=== PATIENT | female | born 1985 | race Caucasian/White ===

== ENCOUNTER 2017-06-22 06:31 | Emergency (ER) | payer OTHER ==
[2017-06-22] MEDS ORDERED: Sodium Chloride 0.9% 10 ML Syringe FLUSH PRN (06:53)
--- NOTE | 2017-06-22 07:13 | EDM.PDOC ---
ED HPI GENERAL MEDICAL PROBLEM - General Chief Complaint: Neurological Problem Stated Complaint: [facility] Time Seen by Provider: 06/22/17 07:09 Source of Information: Reports: Patient, Family (spouse) History Limitations: Reports: No Limitations - History of Present Illness INITIAL COMMENTS - FREE TEXT/NARRATIVE: 32-year-old female presents to the ED after experiencing a grand mal convulsion this morning at about 0520 hrs.she had her arm wrapped around her whom is sleeping and awoke to her violent contractions of her arm. When he turned on the lights he witnessed that her eyes were rolled back up in her head and that she was drooling and salivating with rhythmic tonic-clonic movements of both legs and arms. He believes the seizure lasted close to 2 minutes. He took at least 10-50 minutes before she was able to speak and make sense[facility] [place] She's had no previous seizures. She is on Lovenox 30 milligrams subcutaneous daily due to being at this time and has known Von Leiden factor mutation. Also strong family history of intracerebral aneurysms. At present she has a headache also central behind her left eye. Mild nausea. No vomiting. She has remained on the bed and therefore no falls or injuries occurred. She does have pain lateral left tongue where she bit it. Not lose control of her bowel or bladder. Denies any bleeding per vagina.currently is 8 weeks gestation. Onset: Today Onset Date: 06/22/17 Onset Time: 05:20 Duration: Minutes: (last 2 minutes according to her .) Location: Reports: Generalized (generalized tonic-clonic seizure.) Quality: Reports: Other (tonic-clonic activity of all limbs) Severity: Severe Improves with: Reports: Other (remains mildly postictal.) Context: Reports: Other (awoke from sleep with grand mal convulsion.). Denies: Activity, Exercise, Lifting, Sick Contact, Trauma Associated Symptoms: Reports: Headaches (headache primarily behind her left eye at present but it's spreading across the forehead to the other side.), Other. Denies: Nausea/Vomiting (generalized weakness), Rash, Seizure Treatments DISPENSARY ATTENDANT: Reports: Other (see below) (none.) Headache Pain Score (Numeric/FACES): 6 - Related Data Allergies Allergy/AdvReac Type Severity Reaction Status Date / Time lidocaine AdvReac Other Verified 06/22/17 06:36 Home Meds: Home Meds Enoxaparin Sodium [Lovenox] 60 mg SUBCUT DAILY 06/22/17 [History] Folic Acid 2 mg PO BID #120 tab 06/22/17 [Rx] Levothyroxine [Synthroid] 50 mcg PO DAILY 06/22/17 [History] Magnesium [Mag-Tab SR] 84 mg PO BID #60 tab.er 06/22/17 [Rx] levETIRAcetam [Keppra] 500 mg PO BID #60 tablet 06/22/17 [Rx] Past Medical History Other OB/BYN History: Patient reports 3 pregnancies and 1 miscarriage Other Musculoskeletal History: Bilateral carpal tunnel syndrome 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 Denies: Fever, Chills, Malaise, Weakness, Decreased Appetite, Weight Loss HEENT: Reports: No Symptoms Respiratory: Reports: No Symptoms Cardiovascular: Reports: No Symptoms Endocrine: Reports: Fatigue GI/Abdominal: Reports: No Symptoms : Reports: No Symptoms Musculoskeletal: Reports: No Symptoms Skin: Reports: No Symptoms Neurological: Reports: Headache Psychiatric: Reports: No Symptoms Hematologic/Lymphatic: Reports: No Symptoms Immunologic: Reports: No Symptoms - Physical Exam Exam: See Below Exam Limited By: No Limitations General Appearance: Alert, WD/WN, No Apparent Distress Eye Exam: Bilateral Eye: Normal Fundi, Normal Inspection, PERRL Throat/Mouth: Evidence of Tongue Biting (has evidence of tongue biting left lateral anterior tip) Head Exam: Atraumatic, Normocephalic Neck: Normal Inspection, Supple, Non-Tender, Full Range of Motion. No: Lymphadenopathy (L), Lymphadenopathy (R) Respiratory/Chest: No Respiratory Distress, Lungs Clear, Normal Breath Sounds, No Accessory Muscle Use, Chest Non-Tender Cardiovascular: Normal Peripheral Pulses, Regular Rate, Rhythm, No Edema, No Murmur, No Rub GI/Abdominal: Normal Bowel Sounds, Soft, Non-Tender, No Organomegaly, No Abnormal Bruit, No Mass, Pelvis Stable Neuro Exam (Abbreviated): Alert, Oriented, CN II-XII Intact, Normal Cognition, Other (does have some weakness of her lower extremities on motor power and tone given grade 4 out of 5. This is of the hip flexors the knee extensors and the plantar flexion.). No: Normal Gait DTR: 0: Bicep (R), Bicep (L), Patella (R), Patella (L), Achilles (R), Achilles ( L) Back Exam: Normal Inspection, Full Range of Motion. No: CVA Tenderness (L), CVA Tenderness (R) Extremities: Normal Inspection, Normal Range of Motion, Non-Tender, No Pedal Edema Psychiatric: Normal Affect, Normal Mood Skin Exam: Warm, Dry, Intact, Normal Color, No Rash Course - Vital Signs Last Recorded V/S: Last Vital Signs Temp 36.4 C 06/22/17 06:33 Pulse 73 06/22/17 09:29 Resp 21 H 06/22/17 09:29 BP 108/65 06/22/17 09:29 Pulse Ox 98 06/22/17 09:29 - Orders/Labs/Meds Orders: Active Orders 24 hr Category Date Time Status Peripheral IV Care [RC] . DIRECTED Care 06/22/17 06:53 Active Acetaminophen [Tylenol] Med 06/22/17 10:02 Once 975 mg PO NOW ONE Dextrose 5%-0.9% NaCl [Dextrose 5%-Normal Saline] 1,000 Med 06/22/17 07:15 Active ml IV ASDIRECTED Sodium Chloride 0.9% [Saline Flush] Med 06/22/17 06:53 Active 10 ml FLUSH ASDIRECTED PRN Peripheral IV Insertion Adult [OM.PC] Stat Oth 06/22/17 06:53 Ordered Medication Orders Dextrose/Sodium Chloride (Dextrose 5%-Normal Saline) 1,000 mls @ 150 mls/hr IV ASDIRECTED FILOMENA Last Admin: 06/22/17 07:22 Dose: 150 mls/hr Sodium Chloride (Saline Flush) 10 ml FLUSH ASDIRECTED PRN PRN Reason: Keep Vein Open Last Admin: 06/22/17 07:24 Dose: 10 ml Labs: Laboratory Tests 06/22/17 06/22/17 06/22/17 Range/Units 06:51 06:51 06:51 WBC 7.05 (3.98-10.04) K/mm3 RBC 4.95 (3.98-5.22) M/mm3 Hgb 14.7 (11.2-15.7) gm/L Hct 42.0 (34.1-44.9) % MCV 84.8 (79.4-94.8) fl MCH 29.7 (25.6-32.2) pg MCHC 35.0 (32.2-35.5) g/dl RDW Std Deviation 39.2 (36.4-46.3) fL Plt Count 219 (182-369) K/mm3 MPV 9.5 (9.4-12.3) fl Neut % (Auto) 74.4 H (34.0-71.1) % Lymph % (Auto) 15.6 L (19.3-51.7) % [place] % (Auto) 9.2 (4.7-12.5) % Eos % (Auto) 0.4 L (0.7-5.8) Baso % (Auto) 0.3 (0.1-1.2) % Neut # (Auto) 5.24 (1.56-6.13) K/mm3 Lymph # (Auto) 1.10 L (1.18-3.74) K/mm3 [place] # (Auto) 0.65 H (0.24-0.36) K/mm3 Eos # (Auto) 0.03 L (0.04-0.36) K/mm3 Baso # (Auto) 0.02 (0.01-0.08) K/mm3 Sodium 139 (136-145) mEq/L Potassium 4.2 (3.5-5.1) mEq/L Chloride 105 (98-107) mEq/L Carbon Dioxide 22 (21-32) mEq/L Anion Gap 16.2 H (5-15) BUN 14 (7-18) mg/dL Creatinine 0.8 (0.55-1.02) mg/dL Est Cr Clr Drug Dosing 99.99 mL/min Estimated GFR (MDRD) > 60 (>60) mL/min BUN/Creatinine Ratio 17.5 (14-18) Glucose 126 H (74-106) mg/dL Lactic Acid (0.4-2.0) mmol/L Calcium 8.7 (8.5-10.1) mg/dL Magnesium 1.8 (1.8-2.4) mg/dl Total Bilirubin 0.5 (0.2-1.0) mg/dL AST 20 (15-37) U/L ALT 26 (14-59) U/L Alkaline Phosphatase 43 L (46-116) U/L Total Protein 6.8 (6.4-8.2) g/dl Albumin 3.5 (3.4-5.0) g/dl Globulin 3.3 gm/dL Albumin/Globulin Ratio 1.1 (1-2) TSH 3rd Generation 3.190 (0.358-3.74) uIU/mL 06/22/17 Range/Units 07:25 WBC (3.98-10.04) K/mm3 RBC (3.98-5.22) M/mm3 Hgb (11.2-15.7) gm/L Hct (34.1-44.9) % MCV (79.4-94.8) fl MCH (25.6-32.2) pg MCHC (32.2-35.5) g/dl RDW Std Deviation (36.4-46.3) fL Plt Count (182-369) K/mm3 MPV (9.4-12.3) fl Neut % (Auto) (34.0-71.1) % Lymph % (Auto) (19.3-51.7) % [place] % (Auto) (4.7-12.5) % Eos % (Auto) (0.7-5.8) Baso % (Auto) (0.1-1.2) % Neut # (Auto) (1.56-6.13) K/mm3 Lymph # (Auto) (1.18-3.74) K/mm3 [place] # (Auto) (0.24-0.36) K/mm3 Eos # (Auto) (0.04-0.36) K/mm3 Baso # (Auto) (0.01-0.08) K/mm3 Sodium (136-145) mEq/L Potassium (3.5-5.1) mEq/L Chloride (98-107) mEq/L Carbon Dioxide (21-32) mEq/L Anion Gap (5-15) BUN (7-18) mg/dL Creatinine (0.55-1.02) mg/dL Est Cr Clr Drug Dosing mL/min Estimated GFR (MDRD) (>60) mL/min BUN/Creatinine Ratio (14-18) Glucose (74-106) mg/dL Lactic Acid 1.3 (0.4-2.0) mmol/L Calcium (8.5-10.1) mg/dL Magnesium (1.8-2.4) mg/dl Total Bilirubin (0.2-1.0) mg/dL AST (15-37) U/L ALT (14-59) U/L Alkaline Phosphatase (46-116) U/L Total Protein (6.4-8.2) g/dl Albumin (3.4-5.0) g/dl Globulin gm/dL Albumin/Globulin Ratio (1-2) TSH 3rd Generation (0.358-3.74) uIU/mL Meds: Medications Generic Name Dose Route Start Last Admin Trade Name Freq PRN Reason Stop Dose Admin Dextrose/Sodium Chloride 1,000 mls @ 150 mls/hr 06/22/17 07:15 06/22/17 07:22 Dextrose 5%-Normal Saline IV 150 mls/hr ASDIRECTED FILOMENA Administration Sodium Chloride 10 ml 06/22/17 06:53 06/22/17 07:24 Saline Flush FLUSH 10 ml ASDIRECTED PRN Administration Keep Vein Open Discontinued Medications Generic Name Dose Route Start Last Admin Trade Name Freq PRN Reason Stop Dose Admin Levetiracetam 500 mg/ Sodium 105 mls @ 400 mls/hr 06/22/17 08:39 06/22/17 09: 25 Chloride IV 06/22/17 08:53 400 mls/hr ONETIME ONE Administration Lorazepam 1 mg 06/22/17 07:22 06/22/17 07:26 Ativan IVPUSH 06/22/17 07:23 1 mg ONETIME ONE Administration - Radiology Interpretation Free Text/Narrative:: 32-year-old female presents to the ED after suffering a grand mal convulsion witnessed by her . She he awoke to find her seizure during with tonic- clonic movements of both upper extremity and lower extremities. Eyes were back up in her head and she was drooling. He believes the seizure lasted close to 2 minutes. She did bite her left lateral tongue on examination she remains mildly postictal time I examined particular a bilateral lower extremity weakness. She does have a postictal headache. Mostly behind her left eye. No nausea or vomiting. She is currently 8 weeks gestation and is on Lovenox injections subcutaneously for known Von Leiden factor mutation.she has a strong family history of intracerebral aneurysms as well. Therefore decision made to proceed with CT of the brain with covering the abdomen with lead apron. Routine labs to be collected including a lactic acid. IV will be D5 normal saline at 150 mils per hour. Will give Ativan 1 mg IV to try and prevent further seizure activity. - Re-Assessments/Exams Free Text/Narrative Re-Assessment/Exam: 06/22/17 07:51 CT of the brain is been completed with the abdomen covered with lead apron. CT of the brain is within normal limits showing no intracranial bleeding or mass or mass effect. 06/22/17 08:05 Labs are back. White count is normal at 7.05 with 75% neutrophils and no bands on auto differential. Hemoglobin is 14.7 with hematocrit of 42.0. Platelet count is 219,000. Sodium is 139 potassium is 4.2. Chloride 105 bicarbonate is 22. Anion gap is 16.2. BUNs 14 with a creatinine of 0.8. EGFR is greater than 60. Blood glucose is 126. Lactic acid is 1.3. Calcium 8.7 magnesium normal at 1.8. Bilirubin 0.5. AST 20 ALT is 26. Alk phosphatase is 43. TSH is 3.190 in the normal range at this time. Since labs are normal in CT of head is normal I will contact neurology just for an opinion about whether or not they feel she would require antiepileptic medication. 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 Of course the problems are complicated by 8 week gestation . I suspect we will opt for no medication at this time but I will seek neurologists opinion in this regard. 06/22/17 08:27 Patient is being followed by Dr. Shine--tile setter in [place]. I will try and discuss case with her in regards to management. I have spoken with neurology services through [facility] and he suggest magnesium oxide 250 mg once daily and then decision to be made between OB and myself as to whether to place her on low-dose Lamictal 25 mg twice a day. 06/22/17 08:38 Dr. huddleston is not in clinic on and is not available for consult. I therefore spoke to Dr. Luci Luevano. She suggest that we start her on low-dose Keppra and I think we'll proceed with 500 mg twice a day. First dose of Keppra can be administered here in the ED. She also suggest increasing folic acid to 4 mg once daily. She felt was okay to proceed with the magnesium oxide 250 mg once daily as well. 06/22/17 09:04 transvaginal ultrasound reveals a agosto gestation that measures 7 weeks 3 days. No signs of intra-uterine bleeding are evident. EDC therefore would be set at February 05. Departure - Departure Time of Disposition: 10:03 Disposition: Home, Self-Care 01 Condition: Fair Clinical Impression: First trimester Seizure disorder during Qualifiers: Trimester: first trimester Qualified Code(s): O99.351 - Diseases of the nervous system complicating , first trimester - Discharge Information Prescriptions: Folic Acid 2 mg PO BID #120 tab levETIRAcetam [Keppra] 500 mg PO BID #60 tablet Magnesium [Mag-Tab SR] 84 mg PO BID #60 tab.er Referrals: Slava Coyle PA-C [Primary Care Provider] - Forms: ED Department Discharge Additional Instructions: Evaluation in the emergency department this morning after you experienced new- onset grand mal convulsion during sleep. CT of the brain proved to be normal with no signs of intracranial bleeding or mass effect. No evidence of intracerebral aneurysm.. Also transvaginal ultrasound of the pelvis was carried out and identified 7 wk and 3 days agosto fetus with no evidence of intrauterine bleeding or other abnormalities. The problem comes down to the fact that you are on Lovenox subcutaneously daily and also run a daycare for a living. It is felt that the risk of further seizures could compromise your . After speaking with neurology services and OB services at [facility] in [place] decision made to place you on low-dose Keppra 500 mg twice daily with 1 tablet in the morning one at bedtime. For the the Keppra levels can be checked and may dosage may need to be slowly increased as metabolism of this drug will increase as the advances. She also suggest increasing her folic acid, which is vitamin B2 to 4 mg daily suggest 2 mg with the morning medicines and 2 mg with bedtime medicines or supper Third medicine they suggested was magnesium oxide which again is a supplement suggest 84 mg extended release twice daily during the in the hopes of preventing further seizure activity as well. First dose of Keppra was given intravenously while in the ED. Next dose is due tonight at bedtime. This medication may cause you to feel slightly drowsy especially during the first week of use. Subtle suggest no driving of a motor vehicle for the next week until Keppra dosages achieves therapeutic levels. Also suggest suggest no showering or bathing when no one else is at home for the next week. Follow-up with Dr. Gustavo Huddleston as planned .I will send copies of your records and lab work from today to her office note labs were all within normal limits. - My Orders Last 24 Hours: My Active Orders 06/22/17 07:15 Dextrose 5%-0.9% NaCl [Dextrose 5%-Normal Saline] 1,000 ml IV ASDIRECTED 06/22/17 10:02 Acetaminophen [Tylenol] 975 mg PO NOW ONE - Assessment/Plan Last 24 Hours: My Active Orders 06/22/17 07:15 Dextrose 5%-0.9% NaCl [Dextrose 5%-Normal Saline] 1,000 ml IV ASDIRECTED 06/22/17 10:02 Acetaminophen [Tylenol] 975 mg PO NOW ONE
[2017-06-22] MEDS ORDERED: Dextrose 5%-0.9% NaCl 1,000 ML IV SCH (07:15)
[2017-06-22] MEDS ORDERED: LORazepam 2 MG/ML SDV IVPUSH ONE (07:22)
--- NOTE | 2017-06-22 07:48 | CT ---
Head CT Technique: Multiple axial sections through the brain were obtained. Intravenous contrast was not utilized. Comparison: Prior head CT study of 07/16/09. Findings: Ventricles along with basal cisterns and sulci over the convexities are within normal limits for the patient's age. No abnormal parenchymal densities are seen. No evidence of intracranial hemorrhage. No midline shift or mass effect is seen. Minimal mucosal thickening seen within the ethmoid sinuses. No acute calvarial abnormality is identified. Impression: 1. Minimal sinus finding which is felt to be incidental. 2. No acute intracranial abnormality is identified. Diagnostic code #2
[2017-06-22] MEDS ORDERED: levETIRAcetam 500 MG in Sodium Chloride 0.9% 100 ML IV ONE (08:39)
[2017-06-22 09:31] VITALS: BP 108/65
--- NOTE | 2017-06-22 09:46 | US ---
First trimester obstetrical ultrasound: Multiple real-time images were obtained transvaginally. Comparison: Prior ultrasound for current is not available. Dates: LMP: LMP given as 05/01/17, DEMETRIO 02/05/18, gestational age 7 weeks 3 days Current ultrasound: DEMETRIO 02/10/18, gestational age 6 weeks 5 days Single intrauterine gestation is seen. Yolk sac and pole are seen. Small subchorionic hemorrhage is seen. Maternal ovaries appear within normal limits. No free fluid is seen. Measurements: Gestational sac: 2.24 cm - 7 weeks 0 days [place]-rump length: 0.77 cm - 6 weeks 5 days Heart rate: 137 BPM Impression: 1. Single intrauterine gestation. Dates as noted above. 2. Small subchorionic hemorrhage. No other complicating process is identified by ultrasound exam. Diagnostic code #2
[2017-06-22] MEDS ORDERED: Acetaminophen 325 MG Tab PO ONE (10:02)
== END 2017-06-22 10:28 | disposition home or self-care (01) ==
LOC: JD.ED 06:31
DX: O99.351 Diseases of the nervous system complicating pregnancy, first trimester (principal); G40.409 Other generalized epilepsy and epileptic syndromes, not intractable, without status epilepticus; O99.89 Other specified diseases and conditions complicating pregnancy, childbirth and the puerperium; R51 Headache; Z3A.01 Less than 8 weeks gestation of pregnancy; Z88.8 Allergy status to other drugs, medicaments and biological substances; Z79.899 Other long term (current) drug therapy
CPT/HCPCS: 36415; 70450; 76817; 80053; 83605; 83735; 84443; 85025; 96361; 96365; 96375; 99285; A9270; J1953; J2060; J7030; J7042; J7050

== ENCOUNTER 2017-07-23 07:29 | Emergency (ER) | payer OTHER ==
[2017-07-23 07:40] VITALS: BP 118/70
[2017-07-23] MEDS ORDERED: LORazepam 2 MG/ML SDV IVPUSH ONE (07:49)
--- NOTE | 2017-07-23 07:49 | EDM.PDOC ---
ED HPI GENERAL MEDICAL PROBLEM - General Chief Complaint: Neurological Problem Stated Complaint: SEIZURE Time Seen by Provider: 07/23/17 07:43 - History of Present Illness INITIAL COMMENTS - FREE TEXT/NARRATIVE: 32-year-old female presents emergency room with a seizure. The patient was thought to have a seizure this morning this was unwitnessed she was found on the floor. It took her about 20 minutes to wake up. No loss of bowel or bladder control. This was unwitnessed. Patient had a seizure early in June complicating a she has a 4 para 21 miscarriage now in about 12 weeks gestation. Patient has seen neurology she is scheduled for an MRI and an EEG this coming Monday. After her last seizure she was started on Keppra 500 mg twice daily folic acid 4 mg daily and magnesium. Patient states she's been taking all her medications as directed. The patient has a little bit of a headache at this time it is unclear if she hit her head however she was found on the floor and it is presumed that she started out on her bed. The patient is on anticoagulation for factor V. She has a strong family history of intracranial aneurysms. The patient has had some nausea after this event however this is much better she does not need anything for nausea control at this point her headache is mild. The patient had an episode where she woke up with some spasm on the right side of her jaw this took several hours to get better she wonders if a seizure could've precipitated this. She's also had several episodes of lightheadedness she's checked her blood pressure blood pressure is been okay her pulse is been in the 70s. She was unable to check blood sugars during these episodes. Headache Pain Score (Numeric/FACES): 7 - Related Data Allergies Allergy/AdvReac Type Severity Reaction Status Date / Time lidocaine AdvReac Other Verified 07/23/17 07:41 Home Meds: Home Meds Enoxaparin Sodium [Lovenox] 60 mg SUBCUT DAILY 06/22/17 [History] Folic Acid 2 mg PO BID #120 tab 06/22/17 [Rx] Levothyroxine [Synthroid] 50 mcg PO DAILY 06/22/17 [History] Magnesium [Mag-Tab SR] 84 mg PO BID #60 tab.er 06/22/17 [Rx] levETIRAcetam [Keppra] 500 mg PO BID #60 tablet 06/22/17 [Rx] Pnv No.95/Ferrous Fum/Folic AC [ Multivitamin Tablet] 1 each PO DAILY [History] levETIRAcetam [Levetiracetam] 750 mg PO Q12H #60 tablet 07/23/17 [Rx] Past Medical History Other OB/BYN History: Patient reports 3 pregnancies and 1 miscarriage Other Musculoskeletal History: Bilateral carpal tunnel syndrome Other Hematologic History: Factor 5 Other Immunologic History: Factor 5 - Past Surgical History Other GI Surgeries/Procedures: 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, Exploratory laparotomy Social & Family History - Family History Cardiac: Reports: Aneurysm - Tobacco Use Smoking Status *Q: Never Smoker Used Tobacco, but Quit: No Second Hand Smoke Exposure: No - Caffeine Use Caffeine Use: Reports: Coffee - Recreational Drug Use Recreational Drug Use: No Drug Use in Last 12 Months: No - Living Situation & Occupation Living situation: Reports: Occupation: Unemployed ED ROS GENERAL - Review of Systems Review Of Systems: See Below Constitutional: Reports: No Symptoms HEENT: Reports: No Symptoms Respiratory: Reports: No Symptoms Cardiovascular: Reports: No Symptoms GI/Abdominal: Reports: Nausea. Denies: Abdominal Pain, Constipation, Diarrhea, Vomiting : Reports: No Symptoms Musculoskeletal: Reports: No Symptoms Skin: Reports: No Symptoms Neurological: Reports: Headache, Seizure Psychiatric: Reports: No Symptoms Hematologic/Lymphatic: Reports: No Symptoms Immunologic: Reports: No Symptoms - Physical Exam Exam: See Below Exam Limited By: No Limitations General Appearance: Alert, No Apparent Distress Eye Exam: Bilateral Eye: EOMI, Normal Inspection, PERRL Ears: Normal External Exam, Normal Canal, Hearing Grossly Normal, Normal TMs Nose: Normal Inspection, Normal Mucosa, No Blood Throat/Mouth: Normal Inspection, Normal Lips, Normal Teeth, Normal Gums, Normal Oropharynx, Normal Voice, No Airway Compromise Head Exam: Atraumatic, Normocephalic. No: Scalp Hematoma, Scalp Tenderness, Facial Tenderness, Sinus Tenderness Neck: Normal Inspection, Supple, Non-Tender, Full Range of Motion. No: Lymphadenopathy (L), Lymphadenopathy (R) Respiratory/Chest: No Respiratory Distress, Lungs Clear Cardiovascular: Normal Peripheral Pulses, Regular Rate, Rhythm, No Edema GI/Abdominal: Normal Bowel Sounds, Soft, Non-Tender, No Organomegaly, No Distention, No Abnormal Bruit, No Mass (Female) Exam: Other (Uterus measures about 12 weeks heart tones are audible via Doppler at 140 bpm) Neuro Exam (Abbreviated): Alert, Oriented, CN II-XII Intact, Normal Cognition, No Motor/Sensory Deficits, Other (Deep tendon reflexes normal at the brachial radialis. Cerebellar testing is intact.). No: Abnormal Reflexes, Sensory/Motor Deficit Back Exam: Normal Inspection. No: CVA Tenderness (L), CVA Tenderness (R) Extremities: Normal Inspection, No Pedal Edema Psychiatric: Normal Affect Skin Exam: Warm, Dry, Intact, Normal Color, No Rash EKG INTERPRETATION EKG Date: 07/23/17 Rhythm: NSR [place]: Normal P-Wave: Present QRS: Normal ST-T: Normal QT: Normal Comparison: NA - No Prior EKG EKG Interpretation Comments: Normal EKG no prior Course - Vital Signs Last Recorded V/S: Last Vital Signs Temp 36.2 C 07/23/17 07:34 Pulse 97 07/23/17 07:34 Resp 16 07/23/17 07:34 BP 118/70 07/23/17 07:34 Pulse Ox 98 07/23/17 07:34 - Orders/Labs/Meds Orders: Active Orders 24 hr Category Date Time Status EKG Documentation Completion [RC] STAT Care 07/23/17 07:59 Active Sodium Chloride 0.9% [Normal Saline] 1,000 ml Med 07/23/17 08:00 Active IV ASDIRECTED Medication Orders Sodium Chloride (Normal Saline) 1,000 mls @ 50 mls/hr IV ASDIRECTED FILOMENA Last Admin: 07/23/17 08:06 Dose: 50 mls/hr Labs: Laboratory Tests 07/23/17 07/23/17 Range/Units 08:09 09:14 Sodium 137 (136-145) mEq/L Potassium 4.0 (3.5-5.1) mEq/L Chloride 104 (98-107) mEq/L Carbon Dioxide 21 (21-32) mEq/L Anion Gap 16.0 H (5-15) BUN 8 (7-18) mg/dL Creatinine 0.8 (0.55-1.02) mg/dL Est Cr Clr Drug Dosing 92.53 mL/min Estimated GFR (MDRD) > 60 (>60) mL/min BUN/Creatinine Ratio 10.0 L (14-18) Glucose 105 (74-106) mg/dL Calcium 9.0 (8.5-10.1) mg/dL Magnesium 1.8 (1.8-2.4) mg/dl Total Bilirubin 0.4 (0.2-1.0) mg/dL AST 13 L (15-37) U/L ALT 18 (14-59) U/L Alkaline Phosphatase 51 (46-116) U/L Total Protein 7.0 (6.4-8.2) g/dl Albumin 3.3 L (3.4-5.0) g/dl Globulin 3.7 gm/dL Albumin/Globulin Ratio 0.9 L (1-2) TSH 3rd Generation 3.339 (0.358-3.74) uIU/mL Urine Color Yellow (Yellow) Urine Appearance Clear (Clear) Urine pH 7.0 (5.0-8.0) Ur Specific [place] 1.020 (1.005-1.030) Urine Protein 1+ H (Negative) Urine Glucose (UA) Negative (Negative) Urine Ketones Negative (Negative) Urine Occult Blood Negative (Negative) Urine Nitrite Negative (Negative) Urine Bilirubin Negative (Negative) Urine Urobilinogen 0.2 (0.2-1.0) Ur Leukocyte Esterase Negative (Negative) Urine RBC Not seen (0-5) /hpf Urine WBC 0-5 (0-5) /hpf Ur Epithelial Cells 0-5 (0-5) /hpf Ur Squamous Epith Cells 0-5 (0-5) /hpf Urine Bacteria Few (FEW) /hpf Urine Mucus Not seen (FEW) /hpf Meds: Medications Generic Name Dose Route Start Last Admin Trade Name Freq PRN Reason Stop Dose Admin Sodium Chloride 1,000 mls @ 50 mls/hr 07/23/17 08:00 07/23/17 08:06 Normal Saline IV 50 mls/hr ASDIRECTED FILOMENA Administration Discontinued Medications Generic Name Dose Route Start Last Admin Trade Name Freq PRN Reason Stop Dose Admin Acetaminophen 650 mg 07/23/17 09:23 07/23/17 09:27 Tylenol PO 07/23/17 09:24 650 mg NOW ONE Administration Levetiracetam 500 mg/ Sodium 105 mls @ 400 mls/hr 07/23/17 09:26 07/23/17 09: 35 Chloride IV 07/23/17 09:40 400 mls/hr ONETIME ONE Administration Lorazepam 1 mg 07/23/17 07:49 07/23/17 08:04 Ativan IVPUSH 07/23/17 07:50 1 mg ONETIME ONE Administration - Re-Assessments/Exams Free Text/Narrative Re-Assessment/Exam: 07/23/17 08:56 Labs ordered IV started patient was given a milligram of Ativan. Situation is little complication of factor V Leiden she is anticoagulated for this she at least fell off the bed during this episode and she has a family history of intracranial aneurysms. Further complicating this is the 12 week . Discussed the pros and cons of head CT at this point and the patient would like to proceed with this. 07/23/17 09:[address] appears normal 07/23/17 09:[address] Martinez on-call neurologist at [facility] with Dr. Fernandez. His recommendations are increase Keppra 750 mg twice daily give her an IV bolus of 500 mg now. Labs reviewed magnesium borderline low at 1.8 remaining chemistries nonsuggestive her TSH is 3.39 this should be watched closely during the her dose of Levoxyl may need to go up down the road. 07/23/17 10:39 Patient continues to do well she's received all medications. We'll discharge at this point. Departure - Departure Time of Disposition: 10:39 Disposition: Home, Self-Care 01 Clinical Impression: First trimester Seizure disorder during Qualifiers: Trimester: first trimester Qualified Code(s): O99.351 - Diseases of the nervous system complicating , first trimester - Discharge Information Prescriptions: levETIRAcetam [Levetiracetam] 750 mg PO Q12H #60 tablet Referrals: Slava Coyle PA-C [Primary Care Provider] - Forms: ED Department Discharge Additional Instructions: Return to the emergency room with any questions or problems. Increase magnesium to 250 mg twice daily. Increase Keppra to 750 mg twice daily from 500 mg twice daily. Continue folic acid 4 mg daily. Follow-up with Dr. Fernandez on Monday as scheduled get the MRI and EEG as anticipated on Monday. If seizure workup remains unrevealing discuss with your arrt technologist the need for testing for hypoglycemia and heart rhythm monitoring. - My Orders Last 24 Hours: My Active Orders 07/23/17 07:59 EKG Documentation Completion [RC] STAT 07/23/17 08:00 Sodium Chloride 0.9% [Normal Saline] 1,000 ml IV ASDIRECTED - Assessment/Plan Last 24 Hours: My Active Orders 07/23/17 07:59 EKG Documentation Completion [RC] STAT 07/23/17 08:00 Sodium Chloride 0.9% [Normal Saline] 1,000 ml IV ASDIRECTED
[2017-07-23] MEDS ORDERED: Sodium Chloride 0.9% 1,000 ML IV SCH (08:00)
--- NOTE | 2017-07-23 09:12 | CT ---
Head CT Technique: Multiple axial sections through the brain were obtained. Intravenous contrast was not utilized. Comparison: Previous head CT exam of 06/22/17.. Findings: Ventricles along with basal cisterns are within normal limits for the patient's age. No abnormal parenchymal densities are seen. No evidence of intracranial hemorrhage. No midline shift or mass effect is seen. Bone window settings were reviewed which shows no acute calvarial abnormality. Visualized sinuses are clear. Impression: 1. Nothing acute is identified on noncontrast head CT study. Diagnostic code #1
[2017-07-23] MEDS ORDERED: Acetaminophen 325 MG Tab PO ONE (09:23)
[2017-07-23] MEDS ORDERED: levETIRAcetam 500 MG in Sodium Chloride 0.9% 100 ML IV ONE (09:26)
== END 2017-07-23 10:54 | disposition home or self-care (01) ==
LOC: JD.ED 07:29
DX: O99.351 Diseases of the nervous system complicating pregnancy, first trimester (principal); G40.909 Epilepsy, unspecified, not intractable, without status epilepticus; Z79.899 Other long term (current) drug therapy; Z88.4 Allergy status to anesthetic agent; Z3A.12 12 weeks gestation of pregnancy
CPT/HCPCS: 36415; 70450; 80053; 81001; 83735; 84443; 93005; 96361; 96365; 96375; 99285; A9270; J1953; J2060; J7030; J7040; 93010

== ENCOUNTER 2020-10-06 17:42 | Emergency (ER) | payer OTHER ==
[2020-10-06 18:04] VITALS: BP 153/100; PULSE 85
[2020-10-06] MEDS ORDERED: Sodium Chloride 0.9% 10 ML Syringe FLUSH PRN ×2 (18:38→18:56)
[2020-10-06] MEDS ORDERED: Diatrizoate Meglumine/Diatrizoate Sodium 37% 120 ML Bottle PO ONE (18:56)
[2020-10-06] MEDS ORDERED: Iopamidol 612 MG/ML 100 ML Bottle IVPUSH ONE (18:56)
--- NOTE | 2020-10-06 20:55 | EDM.PDOC ---
ED HPI GENERAL MEDICAL PROBLEM - General Chief Complaint: Abdominal Pain Stated Complaint: ABD PAIN Time Seen by Provider: 10/06/20 18:17 Source of Information: Reports: Patient, RN Notes Reviewed History Limitations: Reports: Intoxication - History of Present Illness INITIAL COMMENTS - FREE TEXT/NARRATIVE: Patient is a 35-year-old female presenting to the emergency department with complaints of intense right lower quadrant pain. She reports about 3 days ago symptoms began as is what she describes as rectal pressure. Pain then eventually moved up to her lower abdomen and is now localized to her right lower quadrant. Reports that it is difficult to stand up and walk due to pain. Denies any fever or chills. She is had no nausea vomiting or diarrhea. She did have a normal bowel movement today and states that her bowel movements have been regular. She reports that the onset of symptoms has been gradual over the last 3 days. Denies any episodes of intense, stabbing abdominal pain to suggest ovarian cyst. Denies any history of ovarian cyst. 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 She has had exploratory laparotomy in the past and was told that they were unable to visualize much of her anatomy due to the extent of the adhesions. She is sexually active and is not currently on control, therefore there is a possibility of . Denies any dysuria or flank pain. Right Abdominal Pain Score (Numeric/FACES): 2 - Related Data Allergies Allergy/AdvReac Type Severity Reaction Status Date / Time lidocaine AdvReac Other Verified 07/23/17 07:41 Home Meds: Home Meds Enoxaparin Sodium [Lovenox] 60 mg SUBCUT DAILY 06/22/17 [History] Folic Acid 2 mg PO BID #120 tab 06/22/17 [Rx] Levothyroxine [Synthroid] 50 mcg PO DAILY 06/22/17 [History] Magnesium [Mag-Tab SR] 84 mg PO BID #60 tab.er 06/22/17 [Rx] levETIRAcetam [Keppra] 500 mg PO BID #60 tablet 06/22/17 [Rx] Pnv No.95/Ferrous Fum/Folic AC [ Multivitamin Tablet] 1 each PO DAILY 07/23/17 [History] levETIRAcetam [Levetiracetam] 750 mg PO Q12H #60 tablet 03/11/18 [Rx] Past Medical History [employer] History: Reports: Other (See Below) Other [employer] History: Patient reports 3 pregnancies and 1 miscarriage Other Musculoskeletal History: Bilateral carpal tunnel syndrome Neurological History: Reports: Seizure Hematologic History: Reports: Other (See Below) Other Hematologic History: Factor 5 Immunologic History: Reports: Other (See Below) Other Immunologic History: Factor 5 - Past Surgical History Other GI Surgeries/Procedures: 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, Exploratory laparotomy Social & Family History - Family History Cardiac: Reports: Aneurysm - Caffeine Use Caffeine Use: Reports: Coffee - Living Situation & Occupation Living situation: Reports: Occupation: Unemployed ED ROS GENERAL - Review of Systems Review Of Systems: See Below Constitutional: Reports: No Symptoms HEENT: Reports: No Symptoms Respiratory: Reports: No Symptoms Cardiovascular: Reports: No Symptoms Endocrine: Reports: No Symptoms GI/Abdominal: Reports: Abdominal Pain. Denies: Diarrhea, Nausea, Vomiting : Reports: No Symptoms Musculoskeletal: Reports: No Symptoms Skin: Reports: No Symptoms Neurological: Reports: No Symptoms Psychiatric: Reports: No Symptoms Hematologic/Lymphatic: Reports: No Symptoms Immunologic: Reports: No Symptoms ED EXAM, GI/ABD - Physical Exam Exam: See Below General Appearance: Alert, WD/WN, No Apparent Distress Respiratory/Chest: No Respiratory Distress, Lungs Clear, Normal Breath Sounds, No Accessory Muscle Use, Chest Non-Tender Cardiovascular: Normal Peripheral Pulses, Regular Rate, Rhythm, No Edema, No Gallop, No JVD, No Murmur, No Rub GI/Abdominal Exam: Normal Bowel Sounds, Soft, No Organomegaly, No Distention, No Abnormal Bruit, No Mass, Pelvis Stable, Tender (Right lower quadrant tenderness. With palpation of left lower quadrant, pain is referred to the right lower quadrant.) Neurological: Alert, Oriented, CN II-XII Intact, Normal Cognition, Normal Gait, Normal Reflexes, No Motor/Sensory Deficits Psychiatric: Normal Affect, Normal Mood Skin Exam: Warm, Dry, Intact, Normal Color, No Rash Course - Vital Signs Last Recorded V/S: Last Vital Signs Temp 97.6 F 10/06/20 18:01 Pulse 85 10/06/20 18:01 Resp 16 10/06/20 18:01 BP 153/100 H 10/06/20 18:01 Pulse Ox 97 10/06/20 18:01 - Orders/Labs/Meds Orders: Active Orders 24 hr Category Date Time Status Peripheral IV Care [RC] . DIRECTED Care 10/06/20 18:38 Active Sodium Chloride 0.9% [Saline Flush] Med 10/06/20 18:38 Active 10 ml FLUSH ASDIRECTED PRN Sodium Chloride 0.9% [Saline Flush] Med 10/06/20 18:56 Active 10 ml FLUSH ONETIME PRN Peripheral IV Insertion Adult [OM.PC] Stat Oth 10/06/20 18:35 Ordered Medication Orders Sodium Chloride (Sodium Chloride 0.9% 10 Ml Syringe) 10 ml FLUSH ASDIRECTED PRN PRN Reason: Keep Vein Open Sodium Chloride (Sodium Chloride 0.9% 10 Ml Syringe) 10 ml FLUSH ONETIME PRN PRN Reason: Keep Vein Open Last Admin: 10/06/20 20:22 Dose: 10 ml Documented by: BRUCE Labs: Laboratory Tests 10/06/20 10/06/20 10/06/20 Range/Units 19:40 19:40 19:40 WBC 9.81 (3.98-10.04) K/mm3 RBC 4.65 (3.98-5.22) M/mm3 Hgb 14.1 (11.2-15.7) gm/dl Hct 40.9 (34.1-44.9) % MCV 88.0 (79.4-94.8) fl MCH 30.3 (25.6-32.2) pg MCHC 34.5 (32.2-35.5) g/dl RDW Std Deviation 41.5 (36.4-46.3) fL Plt Count 213 (182-369) K/mm3 MPV 9.6 (9.4-12.3) fl Neut % (Auto) 67.7 (34.0-71.1) % Lymph % (Auto) 23.0 (19.3-51.7) % Mcintosh % (Auto) 8.5 (4.7-12.5) % Eos % (Auto) 0.6 L (0.7-5.8) Baso % (Auto) 0.1 (0.1-1.2) % Neut # (Auto) 6.64 H (1.56-6.13) K/mm3 Lymph # (Auto) 2.26 (1.18-3.74) K/mm3 Mcintosh # (Auto) 0.83 H (0.24-0.36) K/mm3 Eos # (Auto) 0.06 (0.04-0.36) K/mm3 Baso # (Auto) 0.01 (0.01-0.08) K/mm3 Sodium 146 H (136-145) mEq/L Potassium 3.5 (3.5-5.1) mEq/L Chloride 108 H (98-107) mEq/L Carbon Dioxide 26 (21-32) mEq/L Anion Gap 15.5 H (5-15) BUN 11 (7-18) mg/dL Creatinine 0.9 (0.55-1.02) mg/dL Est Cr Clr Drug Dosing TNP Estimated GFR (MDRD) > 60 (>60) mL/min BUN/Creatinine Ratio 12.2 L (14-18) Glucose 89 (70-99) mg/dL Calcium 8.7 (8.5-10.1) mg/dL Magnesium 1.9 (1.8-2.4) mg/dL Total Bilirubin 0.3 (0.2-1.0) mg/dL AST 19 (15-37) U/L ALT 36 (14-59) U/L Alkaline Phosphatase 67 (46-116) U/L C-Reactive Protein 0.5 (<1.0) mg/dL Total Protein 7.2 (6.4-8.2) g/dl Albumin 4.0 (3.4-5.0) g/dl Globulin 3.2 gm/dL Albumin/Globulin Ratio 1.3 (1-2) Urine Color Yellow (Yellow) Urine Appearance Clear (Clear) Urine pH 6.5 (5.0-8.0) Ur Specific Upton 1.020 (1.005-1.030) Urine Protein Negative (Negative) Urine Glucose (UA) Negative (Negative) Urine Ketones Negative (Negative) Urine Occult Blood Negative (Negative) Urine Nitrite Negative (Negative) Urine Bilirubin Negative (Negative) Urine Urobilinogen 0.2 (0.2-1.0) Ur Leukocyte Esterase Negative (Negative) Urine RBC Not seen (0-5) /hpf Urine WBC Not seen (0-5) /hpf Ur Squamous Epith Cells Not seen (0-5) /hpf Urine Bacteria Few (FEW) /hpf Urine Mucus Not seen (FEW) /hpf Urine HCG, Qual (NEGATIVE) SARS-CoV-2 RNA (BRETT) (NEGATIVE) 10/06/20 10/06/20 Range/Units 19:40 19:42 WBC (3.98-10.04) K/mm3 RBC (3.98-5.22) M/mm3 Hgb (11.2-15.7) gm/dl Hct (34.1-44.9) % MCV (79.4-94.8) fl MCH (25.6-32.2) pg MCHC (32.2-35.5) g/dl RDW Std Deviation (36.4-46.3) fL Plt Count (182-369) K/mm3 MPV (9.4-12.3) fl Neut % (Auto) (34.0-71.1) % Lymph % (Auto) (19.3-51.7) % Mcintosh % (Auto) (4.7-12.5) % Eos % (Auto) (0.7-5.8) Baso % (Auto) (0.1-1.2) % Neut # (Auto) (1.56-6.13) K/mm3 Lymph # (Auto) (1.18-3.74) K/mm3 Mcintosh # (Auto) (0.24-0.36) K/mm3 Eos # (Auto) (0.04-0.36) K/mm3 Baso # (Auto) (0.01-0.08) K/mm3 Sodium (136-145) mEq/L Potassium (3.5-5.1) mEq/L Chloride (98-107) mEq/L Carbon Dioxide (21-32) mEq/L Anion Gap (5-15) BUN (7-18) mg/dL Creatinine (0.55-1.02) mg/dL Est Cr Clr Drug Dosing Estimated GFR (MDRD) (>60) mL/min BUN/Creatinine Ratio (14-18) Glucose (70-99) mg/dL Calcium (8.5-10.1) mg/dL Magnesium (1.8-2.4) mg/dL Total Bilirubin (0.2-1.0) mg/dL AST (15-37) U/L ALT (14-59) U/L Alkaline Phosphatase (46-116) U/L C-Reactive Protein (<1.0) mg/dL Total Protein (6.4-8.2) g/dl Albumin (3.4-5.0) g/dl Globulin gm/dL Albumin/Globulin Ratio (1-2) Urine Color (Yellow) Urine Appearance (Clear) Urine pH (5.0-8.0) Ur Specific Upton (1.005-1.030) Urine Protein (Negative) Urine Glucose (UA) (Negative) Urine Ketones (Negative) Urine Occult Blood (Negative) Urine Nitrite (Negative) Urine Bilirubin (Negative) Urine Urobilinogen (0.2-1.0) Ur Leukocyte Esterase (Negative) Urine RBC (0-5) /hpf Urine WBC (0-5) /hpf Ur Squamous Epith Cells (0-5) /hpf Urine Bacteria (FEW) /hpf Urine Mucus (FEW) /hpf Urine HCG, Qual Negative (NEGATIVE) SARS-CoV-2 RNA (BRETT) Negative (NEGATIVE) Meds: Medications Generic Name Dose Route Start Last Admin Trade Name Freq PRN Reason Stop Dose Admin Sodium Chloride 10 ml 10/06/20 18:38 Sodium Chloride 0.9% 10 Ml Syringe FLUSH ASDIRECTED PRN Keep Vein Open Sodium Chloride 10 ml 10/06/20 18:56 10/06/20 20:22 Sodium Chloride 0.9% 10 Ml Syringe FLUSH 10 ml ONETIME PRN Administration Keep Vein Open Discontinued Medications Generic Name Dose Route Start Last Admin Trade Name Freq PRN Reason Stop Dose Admin Diatrizoate Meglum/Diatrizoate Sod 40 ml 10/06/20 18:56 10/06/20 20:23 Diatrizoate Meglumine/Diatrizoate Sodium 37% 120 Ml Bottle PO 10/06/20 18:57 40 ml ONETIME ONE Administration Iopamidol 100 ml 10/06/20 18:56 10/06/20 20:22 Iopamidol 612 Mg/Ml 100 Ml Bottle IVPUSH 10/06/20 18:57 100 ml ONETIME ONE Administration - Re-Assessments/Exams Free Text/Narrative Re-Assessment/Exam: Patient is a 35-year-old female presenting to the emergency department for evaluation with regards to right lower quadrant abdominal pain which has been gradually increasing in severity over the course of the last 3 days. She reports it is painful to walk. On exam, she does have tenderness to the right lower quadrant. On palpation of left lower quadrant, pain is referred to the right lower quadrant. She has no rebound tenderness. I have ordered blood work, urinalysis, urine hCG, and a CT scan of the abdomen pelvis with contrast. Patient denies need for nausea or pain medications at this time. 10/06/20 21:22 Hematology is grossly unremarkable. Urinalysis negative for infection. Qualitative hCG and Covid were negative. CT scan of the abdomen pelvis impression as follows: 1. Slight increased free fluid within the pelvis most likely representing a nonvisualized adnexal cyst rupture. 2. Small abnormality within the anterior right liver which is stable from prior study compatible with small benign solid lesion. 3. Scarring within the right kidney which is also stable Appendix was visualized and found to be normal. On review of the CT images, patient does have increased stool in the area for her discomfort. Discomfort could also be related to a small ruptured ovarian cyst. Discussed with patient that the oral contrast to drink is like a laxative and will often cause bowel movements. If she has not had a significant bowel movement with improvement in discomfort by tomorrow morning, recommend that she take either MiraLAX or magnesium citrate. Discussed return precautions. Discharge instructions as documented. Departure - Departure Time of Disposition: 21:22 Disposition: Home, Self-Care 01 Condition: Good Clinical Impression: Abdominal pain Qualifiers: Abdominal location: right lower quadrant Qualified Code(s): R10.31 - Right lower quadrant pain - Discharge Information *PRESCRIPTION DRUG MONITORING PROGRAM REVIEWED*: No *COPY OF PRESCRIPTION DRUG MONITORING REPORT IN PATIENT KALYN: No Instructions: Abdominal Pain, Adult Referrals: Slava Coyle PA-C [Primary Care Provider] - Forms: ED Department Discharge Additional Instructions: You were seen in the emergency department this evening for evaluation with regards right lower quadrant abdominal pain. Work-up included blood work, urinalysis, Covid test, test, and a CT scan of your abdomen pelvis. Results of your work-up were found to be overall normal. Your appendix was visualized and found to be normal. Blood work urinalysis were normal. Covid and test were negative. Results of CT did show a small amount of fluid within your pelvis indicated that she may have had a small ruptured ovarian cyst. There also appears to be increased stool within the area of your tenderness. As we discussed, the oral contrast that you drink will often serve as a laxative and because of bowel movements. If you have not had significant bowel movement by tomorrow morning, recommend purchasing either MiraLAX or magnesium citrate. You may take Tylenol or ibuprofen as needed for discomfort. If you experience any new or worsening symptoms, please not hesitate to return to the emergency department for reevaluation. Sepsis Event Note (ED) - Evaluation Sepsis Screening Result: No Definite Risk - Focused Exam Vital Signs: Vital Signs Temp Pulse Resp BP Pulse Ox 10/06/20 18:01 97.6 F 85 16 153/100 H 97 - My Orders Last 24 Hours: My Active Orders 10/06/20 18:35 Peripheral IV Insertion Adult [OM.PC] Stat 10/06/20 18:38 Peripheral IV Care [RC] . DIRECTED Sodium Chloride 0.9% [Saline Flush] 10 ml FLUSH ASDIRECTED PRN 10/06/20 18:56 Sodium Chloride 0.9% [Saline Flush] 10 ml FLUSH ONETIME PRN - Assessment/Plan Last 24 Hours: My Active Orders 10/06/20 18:35 Peripheral IV Insertion Adult [OM.PC] Stat 10/06/20 18:38 Peripheral IV Care [RC] . DIRECTED Sodium Chloride 0.9% [Saline Flush] 10 ml FLUSH ASDIRECTED PRN 10/06/20 18:56 Sodium Chloride 0.9% [Saline Flush] 10 ml FLUSH ONETIME PRN
--- NOTE | 2020-10-06 20:56 | CT ---
CT abdomen and pelvis Technique: Multiple axial sections were obtained from above the dome of the diaphragm inferiorly through the pubic symphysis. Intravenous and oral contrast was utilized. Reconstructed coronal and sagittal images were obtained. Delayed images were also obtained through the bladder. Comparison: Prior CT abdomen and pelvis exam of 01/11/12. Findings: Visualized lung bases show nothing acute. Small abnormality is noted within the anterior right lobe of the liver measuring approximately 1.5 cm in size. This is felt to be similar to prior exam and appears solid but likely benign. Liver is otherwise unremarkable in appearance. Gallbladder contains no calcified gallstone. Spleen size appears within normal limits. Adrenal glands show no nodule. No abnormality is seen within the pancreas. Right kidney shows area of scarring which is stable from prior CT study. Both kidneys show symmetric contrast enhancement. Delayed images show contrast within the left ureter. No ureteral dilatation or ureteral stone is seen. Abdominal aorta shows no aneurysm. No retroperitoneal adenopathy or mesenteric abnormalities are seen. Appendix is visualized and appears normal in size. Follicular changes are seen within the right ovary which measure within normal limits. There is a small amount of increased fluid within the pelvis being seen which most likely represents rupture of a nonvisualized adnexal cyst. No pelvic mass or adenopathy is seen. Bone window settings were reviewed which show no acute osseous abnormality. Impression: 1. Slight increased free fluid within the pelvis most likely representing a nonvisualized adnexal cyst rupture. 2. Small abnormality within the anterior right liver which is stable from prior study compatible with small benign solid lesion. 3. Scarring within the right kidney which is also stable. Diagnostic code #2
== END 2020-10-06 21:30 | disposition home or self-care (01) ==
LOC: JD.ED 17:42
DX: R10.31 Right lower quadrant pain (principal); Z20.822 Contact with and (suspected) exposure to COVID-19; Z88.4 Allergy status to anesthetic agent
CPT/HCPCS: 36415; 74177; 80053; 81001; 81025; 83735; 85025; 86140; 87635; 99284; Q9963; Q9967; U0002

== ENCOUNTER 2022-12-28 00:32 | Emergency (ER) | payer OTHER ==
[2022-12-28] MEDS ORDERED: Lactated Ringers 1,000 ML IV ONE ×2 (01:41→03:18)
[2022-12-28] MEDS ORDERED: Ondansetron 4 MG/2 ML SDV IVPUSH ONE (01:43)
[2022-12-28] MEDS ORDERED: Naloxone 0.4 MG/ML SDV IVPUSH PRN (01:43)
[2022-12-28] MEDS ORDERED: HYDROmorphone 0.5 MG/0.5 ML Syringe IM ONE (01:43)
[2022-12-28 01:50] LABS: BASOPHILS ABSOLUTE AUTO 0.02 K/mm3 (0.01-0.08); BASOPHILS PERCENT AUTO 0.1 % (0.1-1.2); EOSINOPHILS ABSOLUTE AUTO 0.19 K/mm3 (0.04-0.36); EOSINOPHILS PERCENT AUTO 1.4 (0.7-5.8); HEMATOCRIT 43.2 % (34.1-44.9); HEMOGLOBIN 15.2 gm/dl (11.2-15.7); IMMATURE GRAN ABSOLUTE AUTO 0.03 K/mm3 (0.00-0.10); IMMATURE GRAN PERCENT AUTO 0.2 % (<=1.0); LYMPHOCYTES ABSOLUTE AUTO 1.79 K/mm3 (1.18-3.74); LYMPHOCYTES PERCENT AUTO 13.3 % (19.3-51.7); MEAN CORPUSCULAR HEMOGLOBIN 29.9 pg (25.6-32.2); MEAN CORPUSCULAR HGB CONC 35.2 g/dl (32.2-35.5); MEAN CORPUSCULAR VOLUME 84.9 fl (79.4-94.8); MEAN PLATELET VOLUME 9.7 fl (9.4-12.3); MONOCYTES ABSOLUTE AUTO 1.04 K/mm3 (0.24-0.36); MONOCYTES PERCENT AUTO 7.7 % (4.7-12.5); NEUTROPHILS ABSOLUTE AUTO 10.36 K/mm3 (1.56-6.13); NEUTROPHILS PERCENT AUTO 77.3 % (34.0-71.1); PLATELET COUNT,PLT 245 K/mm3 (182-369); RED BLOOD CELL COUNT 5.09 M/mm3 (3.98-5.22); WHITE BLOOD CELL COUNT,WBC 13.43 K/mm3 (3.98-10.04)
[2022-12-28 02:22] LABS: APPEARANCE,URINE SLT CLOUDY (Clear); BILIRUBIN,URINE NEGATIVE (Negative); COLOR,URINE YELLOW (Yellow); GLUCOSE,URINE TRACE (Negative); KETONES,URINE 1+ (Negative); LEUKOCYTE ESTERASE,URINE NEGATIVE (Negative); NITRITE,URINE NEGATIVE (Negative); OCCULT BLOOD,URINE NEGATIVE (Negative); PROTEIN,URINE TRACE (Negative)
[2022-12-28 02:27] LABS: A/G RATIO 1.1 (1-2); ALANINE AMINOTRANSFERASE,ALT 23 U/L (14-59); ALBUMIN 3.8 g/dl (3.4-5.0); ALKALINE PHOSPHATASE 73 U/L (46-116); ANION GAP 17.6 (5-15); ASPARTATE AMNIOTRANSFERASE,AST 12 U/L (15-37); BILIRUBIN TOTAL 0.1 mg/dL (0.2-1.0); BLOOD UREA NITROGEN,BUN 12 mg/dL (7-18); CALCIUM 8.9 mg/dL (8.5-10.1); CARBON DIOXIDE,CO2 21 mEq/L (21-32); CHLORIDE,CL 104 mEq/L (98-107); ESTIMATED GFR 75 mL/min (>60); GLUCOSE RANDOM 114 mg/dL (70-99); LIPASE 115 U/L (73-393); POTASSIUM,K 3.6 mEq/L (3.5-5.1); PROTEIN TOTAL,TP 7.2 g/dl (6.4-8.2); SODIUM,NA 139 mEq/L (136-145)
[2022-12-28 02:38] LABS: TROPONIN I HIGH SENSITIVITY < 4 pg/mL (<=51)
[2022-12-28 02:40] LABS: BARBITURATE SCREEN,URINE NEGATIVE (CUTOFF=200); BENZODIAZEPINES SCREEN,URINE NEGATIVE (CUTOFF=150); BUPRENORPHINE SCREEN,URINE NEGATIVE (CUTOFF=10); METHADONE SCREEN, URINE NEGATIVE (CUTOFF=200); METHAMPHETAMINES SCREEN, URINE NEGATIVE (CUTOFF=500); OXYCODONE SCREEN,URINE NEGATIVE (CUT0FF=100); PROPOXYPHENE SCREEN,URINE NEGATIVE (CUTOFF=300); THC SCREEN,URINE 20 NG/ML NEGATIVE (CUTOFF=50)
[2022-12-28 02:49] LABS: AMPHETAMINES SCREEN, URINE NEGATIVE (CUTOFF=500)
[2022-12-28 02:59] LABS: AMORPHOUS SEDIMENT,URINE FEW /hpf (NOT SEEN); BACTERIA,URINE MODERATE /hpf (FEW); MUCUS,URINE FEW /hpf (FEW); RBC,URINE 0-5 /hpf (0-5); WBC,URINE 0-5 /hpf (0-5); YEAST,URINE FEW (NOT SEEN)
[2022-12-28] MEDS ORDERED: Promethazine 25 MG/ML SDV IM ONE ×2 (03:37→03:41)
[2022-12-28] MEDS ORDERED: Iopamidol 612 MG/ML 100 ML Bottle IVPUSH ONE (04:11)
[2022-12-28 06:43] VITALS: BP 109/56; PULSE 77
== END 2022-12-28 06:35 | disposition home or self-care (01) ==
LOC: JD.ED 00:32
DX: R10.31 Right lower quadrant pain (principal); R11.0 Nausea; E03.9 Hypothyroidism, unspecified; Z88.4 Allergy status to anesthetic agent; Z79.899 Other long term (current) drug therapy
CPT/HCPCS: 36415; 74177; 76857; 80053; 80306; 81001; 83605; 83690; 84484; 85025; 93005; 96361; 96372; 96374; 99285; J2405; J2550; J7120; Q9967

== ENCOUNTER 2023-02-28 20:39 | Emergency (ER) | payer OTHER ==
[2023-02-28 21:19] LABS: APPEARANCE,URINE CLEAR (Clear); BILIRUBIN,URINE NEGATIVE (Negative); COLOR,URINE YELLOW (Yellow); GLUCOSE,URINE NEGATIVE (Negative); KETONES,URINE 3+ (Negative); LEUKOCYTE ESTERASE,URINE NEGATIVE (Negative); NITRITE,URINE NEGATIVE (Negative); OCCULT BLOOD,URINE NEGATIVE (Negative); PROTEIN,URINE NEGATIVE (Negative); UROBILINOGEN,URINE 0.2 (0.2-1.0)
[2023-02-28 21:36] LABS: BASOPHILS PERCENT AUTO 0.3 % (0.0-1.0); EOSINOPHILS PERCENT AUTO 0.3 % (0.0-6.0); HEMATOCRIT 41.3 % (37.0-47.0); HEMOGLOBIN 14.9 gm/dl (12.0-16.0); IMMATURE GRAN ABSOLUTE AUTO 0.02 K/mm3 (0.00-0.05); IMMATURE GRAN PERCENT AUTO 0.2 % (0.0-0.4); LYMPHOCYTES ABSOLUTE AUTO 1.4 K/mm3 (1.0-4.8); LYMPHOCYTES PERCENT AUTO 15.2 % (24.0-44.0); MEAN CORPUSCULAR HEMOGLOBIN 30.7 pg (28.0-32.0); MEAN CORPUSCULAR HGB CONC 36.1 g/dl (32.0-36.0); MEAN CORPUSCULAR VOLUME 85.2 fl (83.0-99.0); MEAN PLATELET VOLUME 8.9 fl (9.4-12.3); MONOCYTES ABSOLUTE AUTO 0.6 K/mm3 (0.0-0.8); MONOCYTES PERCENT AUTO 6.7 % (0.0-8.0); NEUTROPHILS ABSOLUTE AUTO 7.3 K/mm3 (1.8-7.7); NEUTROPHILS PERCENT AUTO 77.3 % (41.0-71.0); PLATELET COUNT,PLT 211 K/mm3 (150-400); RED BLOOD CELL COUNT 4.85 M/mm3 (4.10-5.30)
[2023-02-28 21:59] LABS: A/G RATIO 1.1 (1-2); ANION GAP 19.4 (5-15); BILIRUBIN TOTAL 0.7 mg/dL (0.2-1.0); CALCIUM 9.1 mg/dL (8.5-10.1); EST CRCL DRUG DOSING (CG) 67.8 mL/min; POTASSIUM,K 3.4 mEq/L (3.5-5.1); PROTEIN TOTAL,TP 7.5 g/dl (6.4-8.2)
[2023-02-28] MEDS ORDERED: Ketorolac 30 MG/ML SDV IVPUSH ONE (22:51)
[2023-02-28] MEDS ORDERED: Sodium Chloride 0.9% 10 ML Syringe FLUSH PRN (22:51)
[2023-02-28] MEDS ORDERED: Ondansetron 8 MG in Sodium Chloride 0.9% 50 ML IV ONE (22:55)
[2023-02-28] MEDS ORDERED: Sodium Chloride 0.9% 1,000 ML IV ONE (22:55)
[2023-03-01] MEDS ORDERED: Prochlorperazine 10 MG/2 ML SDV IVPUSH ONE (00:08)
[2023-03-01] MEDS ORDERED: oxyCODONE 5 MG Tab PO ONE (00:09)
[2023-03-01 01:11] VITALS: BP 129/74; PULSE 74
== END 2023-03-01 00:53 | disposition home or self-care (01) ==
LOC: JD.ED 20:39
DX: K66.0 Peritoneal adhesions (postprocedural) (postinfection) (principal); E03.9 Hypothyroidism, unspecified; Z88.8 Allergy status to other drugs, medicaments and biological substances; Z79.899 Other long term (current) drug therapy
CPT/HCPCS: 36415; 80053; 81003; 82150; 85025; 96361; 96365; 96375; 99284; A9270; J0780; J1885; J2405; J3490; J7030; 99283

== ENCOUNTER 2023-04-17 18:57 | Emergency (ER) | payer OTHER ==
[2023-04-17 20:23] LABS: BASOPHILS ABSOLUTE AUTO 0.1 K/mm3 (0.0-0.2); BASOPHILS PERCENT AUTO 0.4 % (0.0-1.0); EOSINOPHILS PERCENT AUTO 0.3 % (0.0-6.0); HEMATOCRIT 41.2 % (37.0-47.0); HEMOGLOBIN 14.5 gm/dl (12.0-16.0); IMMATURE GRAN ABSOLUTE AUTO 0.03 K/mm3 (0.00-0.05); IMMATURE GRAN PERCENT AUTO 0.3 % (0.0-0.4); LYMPHOCYTES ABSOLUTE AUTO 1.8 K/mm3 (1.0-4.8); LYMPHOCYTES PERCENT AUTO 15.5 % (24.0-44.0); MEAN CORPUSCULAR HEMOGLOBIN 30.4 pg (28.0-32.0); MEAN CORPUSCULAR HGB CONC 35.2 g/dl (32.0-36.0); MEAN CORPUSCULAR VOLUME 86.4 fl (83.0-99.0); MEAN PLATELET VOLUME 8.6 fl (9.4-12.3); MONOCYTES ABSOLUTE AUTO 0.8 K/mm3 (0.0-0.8); MONOCYTES PERCENT AUTO 6.6 % (0.0-8.0); NEUTROPHILS ABSOLUTE AUTO 8.8 K/mm3 (1.8-7.7); NEUTROPHILS PERCENT AUTO 76.9 % (41.0-71.0); PLATELET COUNT,PLT 229 K/mm3 (150-400); RED BLOOD CELL COUNT 4.77 M/mm3 (4.10-5.30); WHITE BLOOD CELL COUNT,WBC 11.43 K/mm3 (3.9-11.3)
[2023-04-17 20:55] LABS: ALBUMIN 3.8 g/dl (3.4-5.0); ANION GAP 15.9 (5-15); BILIRUBIN TOTAL 0.3 mg/dL (0.2-1.0); BUN/CREATININE RATIO 8.9 (14-18); CREATININE 0.9 mg/dL (0.55-1.02); EST CRCL DRUG DOSING (CG) 75.34 mL/min; POTASSIUM,K 3.9 mEq/L (3.5-5.1); PROTEIN TOTAL,TP 7.5 g/dl (6.4-8.2); TSH 1.364 uIU/mL (0.358-3.74)
[2023-04-17 20:57] LABS: APPEARANCE,URINE CLEAR (Clear); BILIRUBIN,URINE NEGATIVE (Negative); COLOR,URINE YELLOW (Yellow); GLUCOSE,URINE NEGATIVE (Negative); KETONES,URINE NEGATIVE (Negative); LEUKOCYTE ESTERASE,URINE NEGATIVE (Negative); NITRITE,URINE NEGATIVE (Negative); OCCULT BLOOD,URINE NEGATIVE (Negative); PH,URINE 6.5 (5.0-8.0); PROTEIN,URINE NEGATIVE (Negative); UROBILINOGEN,URINE 0.2 (0.2-1.0)
[2023-04-17] MEDS ORDERED: Sodium Chloride 0.9% 10 ML SDV FLUSH ONE (22:29)
[2023-04-17] MEDS ORDERED: Iopamidol 755 Mg/ML 100 ML Bottle IVPUSH ONE (22:29)
[2023-04-17] MEDS ORDERED: Sodium Chloride 0.9% 100 ML IV SCH (22:30)
[2023-04-18 00:20] VITALS: BP 123/79; PULSE 87
== END 2023-04-18 00:18 | disposition home or self-care (01) ==
LOC: JD.ED 18:57
DX: R51.9 Headache, unspecified (principal); E03.9 Hypothyroidism, unspecified; Z79.899 Other long term (current) drug therapy; Z86.16 Personal history of COVID-19; Z88.8 Allergy status to other drugs, medicaments and biological substances
CPT/HCPCS: 36415; 70450; 70496; 70498; 80053; 81003; 83735; 84443; 84703; 85025; 99284; J3490; Q9967; 99283